=== PATIENT | female | born 1990 | race Caucasian/White ===

== ENCOUNTER 2017-09-13 07:28 | Inpatient (IN) | payer OTHER ==
[~2017-09-13] VITALS: Ht 160 cm; Wt 174.0 kg
[~2017-09-13 07:28] MED LIST: CITRANATAL B-C1 EAC1; PNEU16DI2
== END 2017-09-15 13:45 | DRG 775 ==
LOC: LDR 07:28 → OB/GYN 21:23
PROC: 0HQ9XZZ Repair Perineum Skin, External Approach (ICD-10-PCS; principal; 2017-09-13)
PROC: 10E0XZZ Delivery of Products of Conception, External Approach (ICD-10-PCS; 2017-09-13)
PROC: 4A1HXCZ Monitoring of Products of Conception, Cardiac Rate, External Approach (ICD-10-PCS; 2017-09-13)
PROC: 4A033R1 Measurement of Arterial Saturation, Peripheral, Percutaneous Approach (ICD-10-PCS; 2017-09-13)
DX: O70.0 First degree perineal laceration during delivery (principal); Z3A.39 39 weeks gestation of pregnancy; Z37.0 Single live birth

== ENCOUNTER 2018-01-16 18:53 | Emergency (ER) | payer OTHER ==
[~2018-01-16] VITALS: Ht 162.6 cm; Wt 56.7 kg
[2018-01-17] MEDS ORDERED: KETO10TA2 PO (01:10)
[2018-01-17] MEDS ORDERED: PROMETHAZINE D118 ML PO (01:10)
[2018-01-17] MEDS ORDERED: ZITHROMAX500 MG PO (01:10)
[2018-01-17] MEDS ORDERED: FLONASE ALLERG9.9 ML NASAL (01:10)
== END 2018-01-17 01:16 | disposition home or self-care (01) ==
LOC: ER 18:53
DX: J01.00 Acute maxillary sinusitis, unspecified (principal); B34.9 Viral infection, unspecified; R50.9 Fever, unspecified; E86.0 Dehydration

== ENCOUNTER 2018-05-18 09:40 | Emergency (ER) | payer OTHER ==
[~2018-05-18] VITALS: Ht 157.5 cm; Wt 62.6 kg
[~2018-05-18 09:40] MED LIST changes: +FLONASE ALLERG9.9 ML NASAL; +KETO10TA2 PO; +PROMETHAZINE D118 ML PO; +ZITHROMAX500 MG PO
[2018-05-18] MEDS ORDERED: TUSSLIN LIQUID474 ML PO (09:59)
== END 2018-05-18 10:53 | disposition home or self-care (01) ==
LOC: ER 09:40
DX: J32.8 Other chronic sinusitis (principal)